=== PATIENT | male | born 1980 | race Caucasian/White ===

== ENCOUNTER → 2024-06-06 06:30 | Day surgery (SDC) | payer BC, SELFPAY | LOC: GI 06:30 | PROVIDERS: ATTENDING PHYSICIAN Internal Medicine | DX: Z12.11 Encounter for screening for malignant neoplasm of colon (principal); K57.30 Diverticulosis of large intestine without perforation or abscess without bleeding; K63.5 Polyp of colon | CPT/HCPCS: 45380; 88305 ==